=== PATIENT | female | born 2000 | race Caucasian/White ===

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

== ENCOUNTER 2018-10-11 09:25 | Emergency (ER) | payer BC ==
[2018-10-11 09:31] VITALS: BP 122/94
--- NOTE | 2018-10-11 09:38 | EDPHY ---
General Time Seen by Provider: 10/11/18 09:37 Narrative: CLINICAL IMPRESSION: Left ear laceration ASSESSMENT/PLAN: Patient is a 18-year-old female with no significant medical history who presents to the emergency department complaining of left ear laceration after she rolled out of her bed hitting it on the nightstand. Patient is not toxic- appearing, she is tearful however in no acute distress. Her neurological exam is grossly normal with no focal deficit. She did not lose consciousness, she denies any headache or dizziness, I have a very low suspicion for TBI, concussion skull fracture or ICH. Physical examination reveals 2 cm laceration along the left tragus. There is no evidence of deep structure involvement, cartilaginous injury, neurovascular compromise, foreign body, or bony involvement. The wound was not contaminated, tetanus status was up-to-date. The wound was irrigated and then repaired as discussed in the procedure note, the patient tolerated this well. Wound care instructions discussed with patient. She is traveling to [place] on Friday and will be there for the next week, I discussed that she will need her sutures removed in the next 5-7 days and can go to any urgent care or emergency department for evaluation and suture removal. Return precautions discussed- she will return for increased pain, signs of infection, fever, vomiting, if the wound opens or for any other concerns. Patient verbalizes understanding and she is in agreement with this plan. DIFFERENTIAL DIAGNOSIS: includes but not limited to laceration of cartilage or vascular structure, underlying fracture, laceration with retained FB ED PROCEDURES: Laceration Repair Verbal consent obtained by patient. Risks discussed, including but not limited to infection, pain, retained foreign body, need for additional repair, poor cosmetic result, tendon damage, nerve damage, poor wound healing, vascular damage. Alternatives to repair discussed. [place] protocol used to establish correct patient, procedure, equipment, wan support specialist, and site. Anesthesia obtained by local infiltration. Anesthetized with 1% lidocaine with epinephrine. Laceration location left tragus , length 2 cm, depth 3 mm, Repair type simple. Patient was prepped and draped in usual sterile fashion. Hemostasis achieved with direct pressure. Wound explored, it is very superficial in nature. No suspicion for nerve damage, cartilaginous damage, underlying fracture, vascular damage, foreign body, or contamination. Area was cleansed with Shur-Clens and irrigated with sterile saline as per protocol. No foreign body or material removed. Repair method 5.0 Prolene simple interrupted. Seven sutures placed. Well aligned, closely approximated. wound was dressed with antibiotic ointment. Patient tolerated well with no immediate complications. Wound care: Clean and dry x 24 hours, gently clean with soap and water, cover with topical antibiotic ointment/bandage. Suture/Staple removal: 5-7 days Days CHIEF COMPLAINT: Laceration HPI: Patient is a 18-year-old female with no significant medical history who presents to the emergency department complaining of left ear laceration. Patient reports she accidentally rolled out of bed hitting her left ear on her night stand. Patient did not hit her head, she reports that she only scythed her ear. There was no loss of consciousness. She denies any headache, neck pain, back pain or chest wall pain. She was able to get the bleeding under control, she is up-to-date on all her vaccinations. She denies any other injury or complaint. PAST MEDICAL HISTORY: Denies Pertinent Past Surgical History: Denies Social History: Occasional alcohol, denies illicit drug use or cigarette smoking REVIEW OF SYSTEMS: All other systems negative Constitutional: No fever, no chills Musculoskeletal: No deformity, no joint pain Skin: Left ear laceration Neurological: No sensory loss or weakness. PHYSICAL EXAM: General Appearance: Alert, tearful however not toxic-appearing. HENT: Normocephalic. Left ear with a 2 cm superficial laceration along the left tragus, no evidence of extension into the external canal. Right external ear normal. Bilateral TMs with pearly haddad reflex, no evidence of hemotympanum. Nares clear, mucosa is pink. Oropharynx is clear, dentition is normal without evidence of trauma. There is no mandibular tenderness to palpation. Neck: Supple, no midline cervical spinal tenderness to palpation. No step-off or deformity. Full range of motion. Back: No step-off, palpable bony abnormality, edema, erythema or ecchymosis of the cervical, thoracic or lumbar spines. No tenderness to palpation of the midline thoracic or lumbar spines. Full range of motion of all spines. 5/5 and equal strength of the UEs and LEs bilaterally including shoulder shrug. Pulses: 2+ and equal radial, DP and PT pulses bilaterally. Sensation intact and symmetric to light touch from face, UEs and LEs bilaterally. Straight leg raise negative bilaterally. Cardiovascular: Regular rate and rhythm, no murmur. Lungs: Clear to auscultation bilaterally. There is no chest wall tenderness anteriorly or posteriorly. No evidence of traumatic injury. Neurological: Alert and oriented x 3, grossly normal with no focal deficit Skin: Warm and dry. As mentioned above. Upper Extremities: Intact distal pulses, Full range of motion intact, no tenderness, no ecchymosis or edema Lower Extremities: Intact distal pulses, No edema, No tenderness, No cyanosis, full range of motion intact, No calf tenderness bilaterally. MEDICAL DECISION MAKING: Patient was seen independently. Secondary supervising physician at time of evaluation was Dr. Lucia, he did not evaluate this patient. Diagnosis: Left ear laceration. New, requires workup Summary: See assessment and plan for summary of ED visit Clinical lab tests: Not applicable. Independent visualization of images, tracing, or specimens not applicable. Decision to obtain medical records or history from someone other than the patient: No Review / Summarize previous medical records: Yes Discussed patient with another provider: stable, discharged - History Smoking Status: Never smoked - Objective Vital Signs: Initial Vital Signs Temperature (C) 36.8 C 10/11/18 09:29 Heart Rate 68 10/11/18 09:29 Respiratory Rate 17 10/11/18 09:29 Blood Pressure 122/94 H 10/11/18 09:29 O2 Sat (%) 97 10/11/18 09:29 O2 Delivery Mode Room Air Allergies/Adverse Reactions: No Known Allergies Allergy (Verified 10/11/18 09:28) Home Medications: Medication Instructions Recorded Beba Hua Fe 1-10 Tablet 10/11/18 Departure - Departure Disposition: Home, Routine, Self-Care Clinical Impression: Laceration of ear Qualifiers: Encounter type: initial encounter Laterality: left Qualified Code(s): S01.312A - Laceration without foreign body of left ear, initial encounter Condition: Good Instructions: Laceration (ED) Additional Instructions: DISCHARGE INSTRUCTIONS FROM YOUR DOCTOR Thank you for visiting our emergency department today. Please keep in mind that discharge from the emergency department does not mean that there is nothing wrong - it simply means that we have not identified an emergency condition that requires further evaluation or treatment in the hospital. You should always plan to follow up with primary care for re-evaluation of your condition in the next 2-3 days. Keep wound clean and dry for 24 hours. Clean at least twice daily or when soiled with soap and water, apply antibiotic ointment and dressing. Do not soak the wound while the stitches are in place. Anticipate suture removal in 5-7 days, you can go to any urgent care or emergency department while you were in [place]. Please try to avoid submersion in pool water and ocean water. Make sure to keep covered from the sun as you are at high risk for scarring. For pain control: You may take Tylenol, I recommend 500-1000 mg every 6-8 hours as needed. Take with food and a full glass of water. Stop taking if this is upsetting her stomach. Do not exceed 4000 mg in a 24 hr period. You may also take ibuprofen, recommend 400 mg every 6 hr. Take with food and a full glass of water. Stop taking if this upsets her stomach. Do not exceed 2400 mg in a 24 hr period. Return for signs of wound infection ie: redness, swelling, drainage, foul odor, red streaks, fever, chills, pain, bleeding, if the stitches pop, if the wound opens or for any other new, worsening or worrisome symptoms. People present with illnesses and injuries in different ways, and it is always possible that we have missed something. You may always return for re-evaluation if symptoms worsen or if they are not improving or if you develop new/different symptoms. Again, thank you for choosing our emergency department. We hope that you feel better. Referrals: ED,PHYSICIAN DEAN [Medical Doctor] - As per Instructions (5-7 days for suture removal) Christina Quezada MD [Medical Doctor] - As per Instructions (Please establish care with a primary care provider if you do not already have 1. )
[2018-10-11] MEDS ORDERED: ACETAMINOPHEN 325 MG TAB PO ONE (10:21)
== END 2018-10-11 10:47 | disposition home or self-care (01) ==
PROC: 0HQ3XZZ Repair Left Ear Skin, External Approach (ICD-10-PCS; principal; 2018-10-11)
DX: S01.312A Laceration without foreign body of left ear, initial encounter (principal); W06.XXXA Fall from bed, initial encounter; Y92.003 Bedroom of unspecified non-institutional (private) residence as the place of occurrence of the external cause